=== PATIENT | female | born 1955 | race Caucasian/White ===

== ENCOUNTER → 2017-08-25 | Day surgery (SDC) | payer OTHER ==
[~2017-08-25] VITALS: Ht 157.5 cm; Wt 104.3 kg
[~2017-08-25] MED LIST: BENAZEPRIL40 MG PO; CALCIUM600 M3 PO; CARAFATE1 GM/10 ML PO; COZAAR100 M1 PO; FIBER500 MG PO; GLUCOSAMINE-CH480 ML PO; HYOSCYAMINE0.125 M2 PO; LEVOTHYROXINE100 MC1 PO; MULTIVITAMINS1 EAC9 PO; NORVASC2.5 M1 PO; OMEPRAZOLE40 M1 PO; RABEPRAZOLE SOD20 MG PO; SIMVASTATIN40 MG PO; SYNTHROID0.088 MG PO; TURMERIC500 M2 PO; ZOCOR40 M1 PO
--- NOTE | 2017-08-25 13:49 | Operative Report ---
Operative/Inv Procedure Report Surgery Date: 08/25/17 Name of Procedure: Left breast biopsy with wire localizationLeft breast biopsy with wire localization Pre-Operative Diagnosis: Left breast papillary lesionLeft breast papillary lesion Post-Operative Diagnosis: SameSame Estimated Blood Loss: less than 50ml Surgeon/Traffic Line Painter: Deanna Antony MD Anesthesia: local monitored anesthesi Specimens: Left breast biopsyLeft breast biopsy Operative/Procedure Note Note: Patient is brought to the operating room for left breast biopsy after preoperative wire localization was performed and the films were reviewed. 2 g of Ancef was given and left breast was prepped and draped in a sterile fashion using ChloraPrep. Incision was planned to be made in the periareolar region. Local anesthesia 1% lidocaine mixed with half percent Marcaine was given. An incision was made and the wire was brought into the incision. The area of concern was grasped using an Allis clamp. Intraoperative x-ray confirmed the presence of the clip in the specimen. Hemostasis was achieved using electrocautery. Deep tissue was approximated using interrupted Vicryl sutures and the skin was closed using a running Biosyn subcutaneous color stitch. Steri -Strips and sterile dressings were applied and patient was transferred to the recovery room in satisfactory condition having tolerated the procedure well.
--- NOTE | 2017-08-26 08:07 | MAMMOGRAPHY REPORT ---
CLINICAL INFORMATION: Preoperative wire localization of a previously biopsied high risk left breast lesion. COMPARISON: Mammogram and breast ultrasound of 06/29/2017 and 06/22/2017. TECHNIQUE NEEDLE LOC: Proper informed consent is obtained from the patient after discussion of the procedure, potential risks and complications, and alternatives including declining the procedure today. Patient was given an opportunity for questions. The patient appeared to understand. The patient consented to the procedure and signed the consent form. GUIDANCE: Digital mammography. APPROACH: Medial Lateral TARGET: A ribbon-shaped biopsy clip at 7:00. ANESTHESIA: 5 mL lidocaine 2% LOCALIZATION MARKER: [place] The skin was prepped and local anesthesia administered. The needle was positioned and position assessed with mammography. The wire was hooked into position. The patient tolerated the procedure well and had no immediate complication. Diagram was marked for the surgeon. The target is at 7:00, 3 cm deep to the skin with 21 cm of the wire remaining external to the skin. 4 cm wire is deep to the skin. Biopsy clip is located at the junction or the hook of the wire and thick portion of the wire. IMPRESSION: Status post left breast needle localization with wire hooked into position. The target is 7:00, 3 cm deep to the skin with 21 cm of the wire remaining external to the skin. EXAMINATION: SPECIMEN RADIOGRAPH COMPARISON: Imaging from the needle localization procedure performed earlier in the day. FINDINGS: A single specimen radiograph was obtained. This shows the wire is delivered intact. The biopsy clip is identified within the specimen. IMPRESSION: Satisfactory excision of the targeted lesion. The surgeon was notified of the findings at the time of the review.
--- NOTE | 2017-08-26 08:31 | ULTRASOUND CBW REPORT ---
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 The patient presented to the department for pre-operative needle localization of this lesion. COMPARISON: Left breast biopsy ultrasound and post biopsy mammography of 06/29/2017. Mammogram and ultrasound of 06/22/2017. TECHNIQUE: Targeted left breast ultrasound was performed utilizing high-resolution linear transducer. FINDINGS: A previously biopsied lesion at 7 o'clock, 4 cm from nipple in the anterior third is somewhat less well seen on the current examination and appears to be smaller in size. The echogenicity in the area appear to be isoechoic to the intramammary fat. IMPRESSION: As the previously biopsied lesion was not as well seen on the current ultrasound examination, a decision was made to localize this lesion under mammographic guidance. This was discussed with the patient in detail.
== END ==
LOC: STS 01:37 → CBW.IIU 07:00 → STS 07:00 → CBW.IIU 07:30 → CBW.US 08:00 → CBW.IIU 08:30
DX: D05.02 Lobular carcinoma in situ of left breast (principal); I10 Essential (primary) hypertension; K21.9 Gastro-esophageal reflux disease without esophagitis; E66.9 Obesity, unspecified; Z68.41 Body mass index [BMI] 40.0-44.9, adult; E03.9 Hypothyroidism, unspecified
CPT/HCPCS: 76642-LT; J0690; J2001; J2250; J2405